=== PATIENT | male | born 1960 | race Caucasian/White ===

== ENCOUNTER 2024-05-19 15:49 | Inpatient (IN) | payer BC ==
[~2024-05-19] VITALS: Ht 188 cm; Wt 64.0 kg
[2024-05-19] VITALS (23 sets, daily range): BP systolic 145–168; BP diastolic 86–97
[~2024-05-19 15:49] MED LIST: AMOXICILLIN/CL875 MG PO; AMOXICILLIN500 MG PO; CIPROFLOXACN500 MG PO; DOXYCYC MONO100 M1 PO; FLONASE NASAL50 MCG; PAROXETINE20 MG PO; PENICILLN VK500 MG PO; PROAIR HFA IN; TESSALON200 MG PO; ZITHROMAX250 MG PO
--- NOTE | 2024-05-19 16:39 | NUR ---
SUZY CARBONE INFOMRED OF PATIENT STATUS. TO ROOM 5 FOR TREATMENT.
[2024-05-19] MEDS ORDERED: methylPREDNISolone SODIUM SUCC 125 MG/2 ML SDV IV ONE (16:55)
[2024-05-19] MEDS ORDERED: IPRATROPIUM-Albuterol 0.5MG-2.5MG/3 ML NEB ONE (16:55)
[2024-05-19] MEDS ORDERED: KETOROLAC TROMETHAMINE 30 MG/ML SDV IV ONE (17:00)
[2024-05-19] MEDS ORDERED: guaiFENesin-CODEINE 200-20 MG/10 ML UDC PO ONE (17:00)
[2024-05-19] MEDS ORDERED: SODIUM CHLORIDE 0.9% 1,000 ML IV ONE ×5 (17:00→19:02)
[2024-05-19 17:17] LABS: BASO% 0.1 % (0-3); HEMATOCRIT 45.8 % (39.0-50.0); HEMOGLOBIN 15.6 g/dl (14.0-18.0); IMMATURE GRANULOCYTES 0.6 % (0.0-5.0); MEAN CELL VOLUME 96.8 fL CALC (80.0-100.0); MEAN CORPUSCULAR HGB CONC 34.1 g/dL CAL (32.0-36.0); MONO% 9.5 % (2-13); NEUT# 9.76 thou/uL (1.82-7.42); NEUT% 85.8 % (42-76); RED BLOOD COUNT 4.73 mill/uL (4.70-6.10); RED CELL DISTRI WIDTH 12.8 % (11.5-15.5)
[2024-05-19 17:29] LABS: ALBUMIN 4.5 g/dL (3.2-5.0); ANION GAP 17 (6-22 (CALC)); BUN 14 mg/dL (8-23); BUN/CREATININE RATIO 18 (12-20 (CALC)); CARBON DIOXIDE 24 mmol/l (22-30); CHLORIDE 93 mmol/l (95-108); CREATININE 0.8 mg/dL (0.7-1.3); ESTIMATED GFR 99 ML/MIN (>=90 (CALC)); POTASSIUM 4.2 mmol/l (3.5-5.1); SGOT/AST 84 u/l (19-48); SODIUM 130 mmol/l (137-146); TOTAL PROTEIN 8.3 g/dL (6.3-8.2)
[2024-05-19 17:30] LABS: ALKALINE PHOSPHATASE 114 u/l (38-126)
--- NOTE | 2024-05-19 17:30 | NUR ---
ADVISED PT OF PLAN OF CARE.
[2024-05-19] MEDS ORDERED: AZITHROMYCIN 500 MG in SODIUM CHLORIDE 0.9% 500 ML IV ONE (18:55)
--- NOTE | 2024-05-19 19:04 | NUR ---
REPORT RECEIVED FROM GRAZYNA AVILES AND CARE RESUMED BY THIS NURSE AT THIS TIME. CALL LIGHT WITHIN REACH AND PT AWAITING RESULTS.
[2024-05-19] MEDS ORDERED: Zaleplon 5 MG/CAP PO PRN (19:35)
[2024-05-19] MEDS ORDERED: ACETAMINOPHEN 325 MG/TAB PO PRN (19:35)
[2024-05-19] MEDS ORDERED: MAGNESIUM HYDROXIDE 30 ML UDC PO PRN (19:35)
[2024-05-19] MEDS ORDERED: AZITHROMYCIN 500 MG/VIAL SDV IV SCH (19:35)
--- NOTE | 2024-05-19 20:01 | NUR ---
PT SITTING IN RM AWAITING RESULTS AT THIS TIME. CALL LIGHT WITHIN REACH AND PT HAS NO NEEDS OR CONCERNS AT THIS TIME.
[2024-05-19] MEDS ORDERED: ENOXAPARIN SODIUM 40 MG/0.4 ML SYR SC SCH (21:00)
--- NOTE | 2024-05-19 21:08 | NUR ---
PT SITTING IN RM AWAITING ADMIT AT THIS TIME. CALL LIGHT WITHIN REACH AND PT HAS NO NEEDS OR CONCERNS AT THIS TIME.
--- NOTE | 2024-05-19 22:10 | NUR ---
REPORT GIVEN TO GRAZYNA BAH AT THIS TIME AND PT TO BE TRANSPORTED TO MED SURG RM 280 SHORTLY. CALL LIGHT WITHIN REACH AND PT HAS NO NEEDS OR CONCERNS.
--- NOTE | 2024-05-19 22:28 | NUR ---
Admission Note Report Given to: GRAZYNA BAH Transported by: X Wheelchair Stretcher Transported with: Nurse X Transporter X Patent IV O2 X Traffic Rate Computer Location: ICU X [facility]
--- NOTE | 2024-05-19 22:36 | NUR ---
NEW ADMIT C/O SOB DX PNEUMONIA, ARRIVED TO UNIT BY WHEELCHAIR. PATIENT A/OX4, NO S/S RESPIRATORY DISTRESS PATIENT ON ROON AIR WITH NO PRODUCTIVE COUGH AND NO C/O PAIN. PATIENT ABLE TO AMBULATE, PATIENT AMBULATE FROM WHEELCHAIR TO BED. PATIENT SKIN INTACT. PATIENT CONTINENT OF BOWEL AND BLADDER, PATIENT LAST BM 05/18/24.
[2024-05-19] MEDS ORDERED: ALBUTEROL SULFATE 2.5 MG VIAL IN SCH (23:00)
[2024-05-20] VITALS (7 sets, daily range): BP systolic 129–164; BP diastolic 76–89
--- NOTE | 2024-05-20 | NUR ---
PATIENT RESTING IN BED. PATIENT NO S/S OF RESPIRATORY DISTRESS NO S/S OF PAIN. PATIENT NORMAL SINUS RHYTHM ON TELE. PATIENT CALL LIGHT WITHIN REACH, WILL CONTINUE TO MONITOR
[2024-05-20 05:18] LABS: BASO% 0.1 % (0-3); IMMATURE GRANULOCYTES 0.2 % (0.0-5.0); MEAN CELL VOLUME 98.4 fL CALC (80.0-100.0); MEAN CORPUSCULAR HGB 33.5 pG CALC (26.0-32.0); MONO% 5.8 % (2-13); NEUT# 9.27 thou/uL (1.82-7.42); NEUT% 89.9 % (42-76); RED BLOOD COUNT 3.85 mill/uL (4.70-6.10)
[2024-05-20 05:25] LABS: HEMATOCRIT 37.9 % (39.0-50.0); HEMOGLOBIN 12.9 g/dl (14.0-18.0)
[2024-05-20 05:27] LABS: BILIRUBIN, TOTAL 0.7 mg/dL (0.2-1.3); CREATININE 0.6 mg/dL (0.7-1.3); POTASSIUM 3.9 mmol/l (3.5-5.1)
[2024-05-20 05:28] LABS: TOTAL PROTEIN 5.8 g/dL (6.3-8.2)
--- NOTE | 2024-05-20 07:10 | NUR ---
PT LAYING IN BED WATCHING TV, PT IS A&O X3, PUPILS ARE PERRL, RESP. EVEN AND UNLABORED, LUNG SOUNDS ARE DIMINISHED IN THE BASES, ABD DISTENDED AND SOFT WITH ACTIVE BOWEL SOUNDS NORMAL S1 S2 HEART SOUNDS, TELE MONITOR IN PLACE, 18G LAC IV SL, STRONG RADIAL AND PEDAL PULSES, SAFETY MEASURES REINFORCED, CALL COY WITHIN REACH
[2024-05-20] MEDS ORDERED: ALBUTEROL SULFATE 2.5 MG VIAL IN PRN (10:02)
[2024-05-20] MEDS ORDERED: IPRATROPIUM-Albuterol 0.5MG-2.5MG/3 ML NEB SCH (11:00)
--- NOTE | 2024-05-20 12:00 | NUR ---
PT SITTING UP IN THE BED WATCHING TV AND GETTING LUNCH, PT DENIES ANY NEEDS AT THIS TIME, CALL COY WITHIN REACH
[2024-05-20] MEDS ORDERED: AZITHROMYCIN 500 MG in SODIUM CHLORIDE 0.9% 250 ML IV SCH (18:00)
[2024-05-21 03:52] VITALS: BP 134/87
[2024-05-21 05:46] LABS: BASO% 0.1 % (0-3); HEMATOCRIT 33.3 % (39.0-50.0); HEMOGLOBIN 11.4 g/dl (14.0-18.0); IMMATURE GRANULOCYTES 0.1 % (0.0-5.0); LYMPH% 10.1 % (15-41); MEAN CELL VOLUME 97.4 fL CALC (80.0-100.0); MEAN CORPUSCULAR HGB 33.3 pG CALC (26.0-32.0); MEAN CORPUSCULAR HGB CONC 34.2 g/dL CAL (32.0-36.0); MONO% 11.8 % (2-13); NEUT# 5.61 thou/uL (1.82-7.42); NEUT% 77.9 % (42-76); RED BLOOD COUNT 3.42 mill/uL (4.70-6.10)
[2024-05-21 06:18] LABS: ALBUMIN 2.9 g/dL (3.2-5.0); CREATININE 0.8 mg/dL (0.7-1.3); POTASSIUM 3.2 mmol/l (3.5-5.1); TOTAL PROTEIN 5.7 g/dL (6.3-8.2)
[2024-05-21 06:26] LABS: BILIRUBIN, TOTAL 0.4 mg/dL (0.2-1.3)
--- NOTE | 2024-05-21 06:38 | NUR ---
Alert and oriented x 4. Patient denies pain at this time. Continues to have Respiratory treatments per MAR. Ambulates independently. Room Air, on Tele running SR with PAC's.
[2024-05-21 06:50] VITALS: BP 142/87
--- NOTE | 2024-05-21 07:15 | NUR ---
PT SITTING UP IN THE BED WATCHING TV, PT IS A&O X3, PUPILS PERRL, NORMAL S1 S2 HEART SOUNDS, TELE MONITOR IN PLACE, RESP. EVEN AND UNLABORED, LUNG SOUNDS ARE DIMINISHED IN BASES, ABD DISTENDED AND SOFT WITH ACTIVE BOWEL SOUNDS, 18G LAC IV SL, SAFETY MEASURES REINFORCED, CALL COY WITHIN REACH
[2024-05-21] MEDS ORDERED: POTASSIUM CHLORIDE 20 MEQ/TAB PO SCH (08:30)
[2024-05-21] MEDS ORDERED: INFLUENZA VIRUS VACCINE (FLUARIX) 2024/25 0.5 ML INJ IM SCH (09:00)
--- NOTE | 2024-05-21 10:52 | NUR ---
VISITOR AT BEDSIDE
[2024-05-21 10:59] VITALS: BP 148/92
[2024-05-21 11:22] LABS: BILIRUBIN, TOTAL 0.5 mg/dL (0.2-1.3)
[2024-05-21] MEDS ORDERED: MULTIPLE VITAMIN TABLET PO SCH (12:00)
[2024-05-21] MEDS ORDERED: THIAMINE HCL 100 MG TAB PO SCH (12:00)
--- NOTE | 2024-05-21 12:00 | NUR ---
PT SITTING UP IN BED VISITING WITH DAUGHTER WHO IS AT BEDSIDE, PT DENIES ANY NEEDS AT THIS TIME, CALL COY WITHIN REACH
[2024-05-21 15:17] VITALS: BP 157/97
--- NOTE | 2024-05-21 16:00 | NUR ---
PT SITTING UP IN THE BED WATCHING TV, TALKING TO VISITORS WHO ARE AT BEDSIDE, NO S/S OF DISTRESS, CALL COY WITHIN REACH
[2024-05-21 19:15] VITALS: BP 148/92
[2024-05-21 19:32] VITALS: BP 148/92
[2024-05-22 00:39] VITALS: BP 117/73
[2024-05-22 00:50] VITALS: BP 117/73
[2024-05-22 05:15] VITALS: BP 150/95
[2024-05-22 05:17] LABS: BASO% 0.5 % (0-3); EOS% 0.2 % (0-8); HEMATOCRIT 35.5 % (39.0-50.0); HEMOGLOBIN 12.1 g/dl (14.0-18.0); IMMATURE GRANULOCYTES 0.2 % (0.0-5.0); LYMPH% 14.1 % (15-41); MEAN CELL VOLUME 98.6 fL CALC (80.0-100.0); MEAN CORPUSCULAR HGB 33.6 pG CALC (26.0-32.0); MEAN CORPUSCULAR HGB CONC 34.1 g/dL CAL (32.0-36.0); MONO% 10.7 % (2-13); NEUT# 4.32 thou/uL (1.82-7.42); NEUT% 74.3 % (42-76); RED BLOOD COUNT 3.6 mill/uL (4.70-6.10)
[2024-05-22 05:35] LABS: ALBUMIN 3.2 g/dL (3.2-5.0); BILIRUBIN, TOTAL 0.7 mg/dL (0.2-1.3); CREATININE 0.6 mg/dL (0.7-1.3); POTASSIUM 3.7 mmol/l (3.5-5.1); TOTAL PROTEIN 6.1 g/dL (6.3-8.2)
[2024-05-22 06:16] VITALS: BP 150/95
--- NOTE | 2024-05-22 06:26 | NUR ---
Alert and Oriented x4. Independant with ADLs. Denies pain at this time. Currently on RA, Denies SOB. Educated on symptoms to report including, chest pain, SOB, weakness, dizziness. Verbalized understanding.
[2024-05-22 07:30] VITALS: BP 150/97
--- NOTE | 2024-05-22 07:30 | NUR ---
PT RESTING IN SEMI FOWLERS POSITION IN BED WITH EYES OPEN. A&O X3. TELLE IN PLACE. PT HAD BM THIS MORNING. PT HAS 18G IN LAC HEALTHY AND SL. RESP CEAR AND UNLABORED. NORMAL S1, S2 HEART SOUNDS. DECLINES ANY NEEDS AT THIS TIME. PT RESTING WITH DOOR CLOSED. SAFETY MEASURES REINFORCED AND CALL COY WITHIN REACH.
[2024-05-22 10:31] VITALS: BP 139/96
[2024-05-22] MEDS ORDERED: DOXYCYCLINE100 MG PO (11:46)
[2024-05-22] MEDS ORDERED: PREDNISONE10 MG PO (11:47)
[2024-05-22] MEDS ORDERED: VENTOLIN HFA108 MCG IN (11:51)
--- NOTE | 2024-05-22 12:40 | NUR ---
PT EATING LUNCH IN BED WHILE SITTING COMFORTABLY. PT IS AXO X3. RESP CLEAR AND UNLABORED ON ROOM AIR. PT WATCHING TV AND DECLINES ANY NEEDS AT THIS TIME. SAFETY MESURES REINFORCED. TRAY TABLE IS CLOSE TO BED, CALL COY IS WITHIN REACH, AND PT WAS REMINDED TO CALL IF HE NEEDED ANYTHING ELSE.
--- NOTE | 2024-05-22 13:29 | NUR ---
Discharge instructions given. Patient verbalizes understanding of same. Discharged in stable condition via Wheelchair to Home with staff. All belongings sent with pt.
== END 2024-05-22 12:53 | disposition home or self-care (01) | DRG 194 ==
LOC: ED 15:49 → ED-I 17:13 → ED 20:00 → MS2 20:01
PROVIDERS: Nurse Practitioner; Nurse Practitioner Family; ADMIT Internal Medicine; ATTEND Internal Medicine
DX: J18.9 Pneumonia, unspecified organism (principal); J44.0 Chronic obstructive pulmonary disease with (acute) lower respiratory infection; R09.02 Hypoxemia; K70.0 Alcoholic fatty liver; Z23 Encounter for immunization; Z20.822 Contact with and (suspected) exposure to COVID-19; Z87.891 Personal history of nicotine dependence
CPT/HCPCS: 90656; J0456; J0696; J1650